=== PATIENT | male | born 1965 | race Caucasian/White ===

== ENCOUNTER 2022-11-18 13:41 | Inpatient (IN) | payer OTHER ==
[~2022-11-18] VITALS: Ht 172.7 cm; Wt 90.7 kg
[~2022-11-18 13:41] MED LIST: ENALAPRIL MALEA20 MG; ENALAPRIL MALEA20 MG PO
--- NOTE | 2022-11-18 14:17 | NUR ---
PTE ALERTA Y ORIENTADO X3 EN COMPANIA DE FAMILIAR. PTE REFIERE PRESION GERMAIN Y ADORMESIMIENTO DE BRAZO JAYA. PTE CON B/P 182/120 P81 Y SE NOT[address]ICA A DR. KENNEDY. SE REALIZA EKG MOSTRADO AL DR. KENNEDY EL CUAL EVALUA Y FIRMA EL MISMO. SE COLOCA PTE EN AREA DE CHEST PAIN Y SE CONECTA A MONITOR CARDIACO Y OXYMETRIA DE PULSO.
--- NOTE | 2022-11-18 15:01 | NUR ---
PACIENTE ALERTA Y ORIENTEDO POR ANGELINA. SE ORIENTA DE TRATAMIENTO LEIGH ORDEN MEDICA POR MR CATR[place] PLAZA. PACIENTE REFIERE ENTENDER. NERI CANALIZA Y COLECTA MUESTRAS CON MEDIDAS ASEPTICAS CORRESPONDIENTES. SE CONECTA A MONITOR CARDIACO CON SATUROMETRO. SE ADMINISTRAN MEDICAMENTOS CON MEDIDAS ASEPTICAS CORRESPONDIENTES. SE NOTIFICA X RAY PORTABLES Y CT A MR DAYA SECRETARIO PARA CONTINUIDAD. BARANDAS ELEVADAS POR DAVIDSON SEGURIDAD. SE MONITOREA POR CAMBIOS SIGNIFICATIVOS.
--- NOTE | 2022-11-18 15:22 | NUR ---
SE CANALIZA PACIENTE EN MANO DERECHA ANGIO # 20, SEGUNDA CANALIZACION, AMBAS PATENTES, LIBRES DE EDEMA Y/O ERITEMA. LE REALIZA X RAYS. SE MONITOREA POR CAMBIOS.
--- NOTE | 2022-11-18 16:44 | NUR ---
PTE ALERTA Y ORIENTADO POR ANGELINA ESFERAS CON BUEN PATRON RESPIRATORIO. ESTA CONECTADO AL MONITOR CARDIACO, NBP Y OXIMETRIA CONTINUA. TIENE CANALIZACION X2 PATENTE TIANA DE EDEMA Y ERITEMA. TIENE DRIP DE TRIDIL 50MG/250ML @3ML/HR.
== END 2022-11-21 12:54 | disposition home or self-care (01) | DRG 65 ==
LOC: ER 13:41 → SEC-K 20:06 → MEDJ 20:39 → SEC-K 22:12 → MEDJ 11-19 14:36
PROVIDERS: ADMIT Internal Medicine; ATTEND Internal Medicine
PROC: B24BZZZ Ultrasonography of Heart with Aorta (ICD-10-PCS; principal; 2022-11-18)
PROC: BW38ZZZ Magnetic Resonance Imaging (MRI) of Head (ICD-10-PCS; 2022-11-18)
PROC: BW28ZZZ Computerized Tomography (CT Scan) of Head (ICD-10-PCS; 2022-11-18)
PROC: B345ZZZ Ultrasonography of Bilateral Common Carotid Arteries (ICD-10-PCS; 2022-11-18)
PROC: 4A12X4Z Monitoring of Cardiac Electrical Activity, External Approach (ICD-10-PCS; 2022-11-19)
DX: I63.89 Other cerebral infarction (principal); G81.94 Hemiplegia, unspecified affecting left nondominant side; I16.9 Hypertensive crisis, unspecified; E66.8 Other obesity; Z20.822 Contact with and (suspected) exposure to COVID-19
CPT/HCPCS: 70544

== ENCOUNTER 2024-05-16 21:02 | Emergency (ER) | payer OTHER ==
[~2024-05-16] VITALS: Ht 200.7 cm; Wt 94.8 kg
[2024-05-16] MEDS ORDERED: VERELAN PM200 MG PO (21:18)
[2024-05-16] MEDS ORDERED: NIFEDIPINE20 MG PO (21:19)
[2024-05-16] MEDS ORDERED: CEFTRIAXONE SODIUM 1,000 MG VIAL IM STA (22:02)
[2024-05-16] MEDS ORDERED: METHYLPREDNISOLONE SOD SUCC 125 MG VIAL IM STA (22:03)
[2024-05-16] MEDS ORDERED: BUDESONIDE 0.5 MG/2 ML AMPUL.NEB IH SCH (22:15)
[2024-05-16] MEDS ORDERED: LEVALBUTEROL HCL 1.25 MG/3 ML SOLUTION IH SCH (22:15)
[2024-05-16] MEDS ORDERED: IPRATROPIUM BROMIDE 0.5 MG/2.5 ML AMPUL.NEB IH SCH (22:15)
[2024-05-16 23:38] LABS: HEMATOCRIT 49.8 % (39.0-48.0); HEMOGLOBIN 17.1 g/dL (13-16.00); MEAN CELL VOLUME 95.1 fL (80.0-100.00); MEAN CORPUSCULAR HEMOGLOBIN 32.6 pg (27.00-32.0); MEAN CORPUSCULAR HGB CONC 34.2 g/dl (32.0-36.0); PLATELET COUNT 205 K/uL (150-450); RED BLOOD COUNT 5.24 M/uL (4.00-6.00); RED CELL DISTRIBUTION WIDTH 15.1 % (11.5-14.5)
== END 2024-05-17 00:20 | disposition home or self-care (01) ==
LOC: ER 21:03
PROVIDERS: General Practice
DX: R05.9 Cough, unspecified (principal)